=== PATIENT | female | born 1945 | race Caucasian/White ===

== ENCOUNTER → 2017-12-03 | Outpatient (CLI) | payer OTHER ==
[~2017-12-03] MED LIST: BENAZEPRIL 10 M10 MG PO; CALICUM 500+D1 EACH PO; D3 DOTS2000 UNIT PO; HYDROCHLOROTHIA25 M2 PO; NEURONTIN100 MG PO; TYLENOL EXTRA500 MG PO
[2017-12-04 05:12] LABS: IgA 561 mg/dL (87-352); IgG 828 mg/dL (700-1600); IgM 403 mg/dL (26-217)
[2017-12-05 10:08] LABS: ANA INTERPRETATION Negative (Negative)
== END ==
LOC: M.LAB 11:06
PROVIDERS: Psychiatry & Neurology Neuromuscular Medicine
DX: M79.604 Pain in right leg (principal); M62.81 Muscle weakness (generalized); Z98.890 Other specified postprocedural states; Z96.651 Presence of right artificial knee joint

== ENCOUNTER → 2017-12-24 | Outpatient (CLI) | payer OTHER ==
[2017-12-24 11:49] LABS: ABSOLUTE BASOPHILS 0.1 thou/uL (0.0-0.2); ABSOLUTE EOSINOPHILS 0.1 thou/uL (0.0-0.7); ABSOLUTE LYMPHOCYTES 1.6 thou/uL (0.8-5.3); ABSOLUTE MONOCYTES 0.6 thou/uL (0.0-1.2); ABSOLUTE NEUTROPHILS 3.9 thou/uL (1.6-8.1); BASOPHILS 1.1 %; EOSINOPHILS 1.7 %; LYMPHOCYTES 26.2 %; MCH 32.3 pg (26.0-34.0); MCHC 34.2 g/dL (28.0-37.0); MCV 94.6 fL (80.0-100.0); MONOCYTES 9.3 %; MPV 8.4 fl. (7.2-11.1); NUCLEATED RBCS 0 /100WBC; PLATELET COUNT* 363 thou/uL (150-400); POLYS 61.7 %; RBC 4.02 mil/uL (4.20-5.00); RDW-CV 13.6 % (10.5-14.5); WBC 6.3 thou/uL (4.0-11.0)
[2017-12-24 12:02] LABS: ALBUMIN 3.5 g/dL (3.4-5.0); CALCIUM 9.1 mg/dL (8.5-10.1); POTASSIUM 3.8 mmol/L (3.5-5.1); TOTAL BILIRUBIN 0.2 mg/dL (<0.1-1.0); TOTAL PROTEIN 7.9 g/dL (6.4-8.2)
[2017-12-24 21:10] LABS: IgA 517 mg/dL (87-352); IgG 873 mg/dL (700-1600); IgM 379 mg/dL (26-217)
[2017-12-25 15:09] LABS: KAPPA FREE LIGHT CHAINS 21.2 mg/L (3.3-19.4); LAMBDA FREE LIGHT CHAINS 87.8 mg/L (5.7-26.3)
[2017-12-27 19:11] LABS: M-SPIKE Note: g/dL (Not Observed)
--- NOTE | 2018-01-03 14:19 | HEMONC ---
[address] [address] HEMATOLOGY ONCOLOGY NOTE Name: NEETU ROSADO Room: [facility]#: [id number] Admission: 12/24/17 Attend Phys: Claudy Monterroso MD Discharge: Date of : 49 Report #: [id number] THIS REPORT FOR: //name// CC: Gene Zeke Monterroso DATE OF SERVICE: 12/24/2017 REFERRING PHYSICIAN: Dr. Winslow. REASON FOR CONSULTATION: Abnormal immunofixation. SUBJECTIVE: This is a 72-year-old female who was referred from Neurology service after she was evaluated because of back pain. 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 The patient has been complaining of back pain, knee pain for the last few years after she had surgery. She denies any frequent infections. She denies any other bone pain. The patient denies any headache, shortness of breath, nausea or vomiting. She denies any change in her urination. REVIEW OF SYSTEMS: All systems were reviewed and were negative except the above. PAST MEDICAL HISTORY: Hypertension, chronic back pain, vitamin D deficiency. MEDICATIONS: Aspirin 81 mg p.o. daily, Tylenol as needed, calcium supplement, vitamin D 1000 units daily, hydrochlorothiazide 25 mg p.o. daily, ____ 100 mg 3 times a day. PAST SURGICAL HISTORY: Hysterectomy, carpal tunnel surgery, spinal fusion in 2016, knee replacement in 2017, cataract surgery in 2013. SOCIAL HISTORY: She is an ex-smoker. She smoked for 22 years between the age of 20 and 42. She drinks alcohol occasionally. ALLERGIES: No known allergies. PHYSICAL EXAMINATION: VITAL SIGNS: Today, blood pressure is 135/74, SPO2 was 96% on room air, pulse 80, respirations 18, sat is 97% on room air. GENERAL: The patient was sitting in chair, was not in acute distress. LUNGS: Clear to auscultation bilaterally. HEART: Regular rate and rhythm. S1, S2 within normal limits. ABDOMEN: Soft, nontender, nondistended, bowel sounds positive. EXTREMITIES: No edema, no cyanosis, [place] [address] HEMATOLOGY ONCOLOGY NOTE Name: NEETU ROSADO Room: [facility]#: [id number] Admission: 12/24/17 Attend Phys: Claudy Monterroso MD Discharge: Date of : 49 Report #: [id number] ASSESSMENT AND PLAN: A 72 years old female who was evaluated because of monoclonal IgA and IgM. The patient had a chronic back pain. RECOMMENDATIONS: I would like to obtain a multiple myeloma workup including CBC, CMP, peripheral blood smear, complete serum electrophoresis with immunofixation and free light chain in addition to skeletal survey. If we consider bone marrow biopsy based on these results, the plan was discussed with the patient. Follow up in 2 weeks. <ELECTRONICALLY SIGNED> By: Claudy Monterroso MD 01/03/18 1419 0930 [id number] Monterroso MD /nt
== END ==
LOC: M.RTH 05:00
PROVIDERS: Internal Medicine
DX: Z12.31 Encounter for screening mammogram for malignant neoplasm of breast (principal); R77.9 Abnormality of plasma protein, unspecified; R82.90 Unspecified abnormal findings in urine; M54.5 Low back pain; I10 Essential (primary) hypertension

== ENCOUNTER → 2018-01-07 | Outpatient (CLI) | payer OTHER ==
--- NOTE | 2018-01-09 10:00 | HEMONC ---
[address] [address] HEMATOLOGY ONCOLOGY NOTE Name: NEETU ROSADO Room: [facility]#: [id number] Admission: 01/07/18 Attend Phys: Claudy Monterroso MD Discharge: Date of : 49 Report #: [id number] THIS REPORT FOR: //name// CC: Dr. Alanis Gene Zeke Monterroso DATE OF SERVICE: 01/07/2018 REFERRING PHYSICIAN: Dr. Winslow. DIAGNOSIS: Monoclonal gammopathy. SUBJECTIVE: A 72-year-old female was evaluated because of abnormal immunofixation. Repeated full lab showed IgM monoclonal gammopathy with lambda light chain. In addition to this, kappa was elevated at 21.0, lambda elevated at 87.8 and free light chain ratio 0.24. However, her calcium was normal at 9.1, with a normal hemoglobin of 13.0 and normal platelet count of 363,000. Skeletal survey came back within normal range. Her M-spike on serum electrophoresis was 0.3 grams. The patient continues to have back pain. REVIEW OF SYSTEMS: All systems are reviewed. It was negative, except the above. PHYSICAL EXAMINATION: VITAL SIGNS: Today, blood pressure is 127/74, pulse 80, respirations 18, temperature is 97.5 and saturation 96% on room air. GENERAL: The patient was sitting in a chair, was not in acute distress. She was awake, alert and oriented x 3. NEUROLOGIC: Cranial nerves were grossly intact. ASSESSMENT AND PLAN: A 72-year-old female was evaluated because of monoclonal gammopathy, IgM lambda. She has no evidence of end-organ damage. However, I would like to obtain a bone marrow biopsy to evaluate the status of her plasma cell dyscrasia, whether this is multiple myeloma versus smoldering myeloma versus MGUS. Followup will be based on the bone marrow biopsy. <ELECTRONICALLY SIGNED> By: Claudy Monterroso MD 01/09/18 1000 [id number] [id number] Monterroso MD /nt
== END ==
LOC: M.RTH 04:41
DX: D47.2 Monoclonal gammopathy (principal)

== ENCOUNTER → 2018-01-13 | Outpatient (CLI) | payer OTHER ==
[~2018-01-13] VITALS: Ht 162.6 cm; Wt 74.8 kg
[2018-01-13 12:39] VITALS: BP 110/56
[2018-01-13 12:41] LABS: HEMATOCRIT 37.5 % (37.0-47.0); HEMOGLOBIN 12.6 gm/dL (12.0-15.0); MCHC 33.5 g/dL (28.0-37.0); MCV 95.4 fL (80.0-100.0); MPV 8.9 fl. (7.2-11.1); PLATELET COUNT* 253 thou/uL (150-400); RBC 3.94 mil/uL (4.20-5.00); RDW-CV 12.4 % (10.5-14.5); WBC 5.5 thou/uL (4.0-11.0)
[2018-01-13 12:44] LABS: CALCIUM 9.5 mg/dL (8.5-10.1); CREATININE 0.9 mg/dL (0.6-1.3); POTASSIUM 3.3 mmol/L (3.5-5.1)
[2018-01-13 12:47] LABS: APTT 23.8 Seconds (25.0-31.3); PROTIME 10.6 Seconds (9.20-11.50)
[2018-01-13 13:11] LABS: NUCLEATED RBCS 0 /100WBC
[2018-01-13 13:41] LABS: ABSOLUTE EOSINOPHILS 0.1 thou/uL (0.0-0.7); ABSOLUTE LYMPHOCYTES 1.9 thou/uL (0.8-5.3); ABSOLUTE MONOCYTES 0.5 thou/uL (0.0-1.2)
[2018-01-13 13:42] LABS: PLATELET ESTIMATE ADEQUATE
[2018-01-13 14:15] VITALS: BP 145/56
[2018-01-13 14:30] VITALS: BP 113/55
[2018-01-13 15:19] VITALS: BP 113/65
--- NOTE | 2018-01-22 09:08 | PATH ---
[address] [address] PATHOLOGY RPT PROCEDURE Name: NEETU ROSADO Room: [facility]#: [id number] Admission: 01/13/18 Date of : 49 Discharge: Report #: [id number] Path Case #: [id number] [facility] Accession Number: [id number] . 01 Material submitted: . PART A: BONE MAROW BIOPSY PART B: BONE MARROW CLOT PART C: BONE MARROW ASPIRATE SLIDES PART D: PERIPHERAL SMEAR PART E: BONE MARROW FLOW . 01 Clinical history: . 72 year old woman with rule out myeloma (monoclonal gammopathy). . . 02 Diagnosis: Bone marrow aspirate, biopsy, cell clot and peripheral blood: - Peripheral blood with very mild erythropenia. - Normocellular to mildly hypercellular bone marrow with trilineage hematopoiesis, mild erythroid hyperplasia, mild (no significant) dyspoiesis and no evidence of lymphoma or acute leukemia. - Minute monoclonal plasma cell population detected by flow cytometry only. - See comment. LBMarques/01/15/2018 . 02 Comment: Overall, the bone marrow is normocellular to very mildly hypercellular for the patient's age with trilineage hematopoiesis, mild erythroid hyperplasia, mild (no significant) dyspoiesis and no evidence of lymphoma or acute leukemia. Flow cytometry identifies a minute monoclonal plasma cell population identified within a background of polyclonal plasma cells. Immunohistochemical staining shows polyclonal plasma cells. Therefore, the exact percentage of possible clonal plasma cells is difficult to determine and estimated at much less than 5%. Correlation with clinical history, additional laboratory data and radiographic findings is required. The dyspoiesis is mild and does not meet the morphologic criteria for myelodysplasia. Correlation with cytogenetics is also recommended. (CLW/gerardo; 01/15/2018) . 02 Electronically signed: . Rosanne Mckeon MD, Pathologist NPI- [id number] . 01 Gross description: . A. Received in formalin labeled "Neetu Rosado Core," is a single needle core of mccray bone measuring 0.6 cm in length and 0.4 cm in diameter. The specimen is submitted entirely in cassette A1, [place] [address] PATHOLOGY RPT PROCEDURE Name: NEETU ROSADO Room: [facility]#: [id number] Admission: 01/13/18 Date of : 49 Discharge: Report #: [id number] Path Case #: [id number] decalcification. . B. Received in formalin labeled "Neetu Rosado Clot," is an aggregate of dark mccray blood clot measuring 3.6 x 1.3 x 1.5 cm. The specimen is filtered and entirely submitted in cassette B1 through B5. (TSD; 01/13/2018) TOB/TOB . 02 Microscopic: . CBC Data (01/13/18): WBC 5,600 per uL, RBC 3.96, hemoglobin 12.7 g/dL, hematocrit 37.5%, MCV 94.6 fL, MCH 32.1 pg, MCHC 33.9 g/dL, RDW 12.6%, and platelet count 258,000 per uL. Automated white blood cell differential: segs 52.9%, lymphs 34.7%, monos 8.9%, eos 2.1%, and basos 1.4%. . Peripheral Blood Smear: Cytomorphological examination of the Acevedo's stained peripheral blood smear confirms the provided data. Red blood cells are without significant anisopoikilocytosis. White blood cells are predominantly segmented neutrophils and without significant dyspoiesis or significant left shift. Lymphocytes are predominantly small, round, and mature appearing with condensed chromatin and scant cytoplasm with admixed large granular lymphocytes. A rare plasmacytoid lymphocyte is noted on scanning. Monocytes are mature. Platelets are adequate in number and mainly normal in morphology with rare larger platelets noted. . Aspirate Smears: Cytomorphological examination of the Acevedo's stained aspirate smear shows spicules present. The overall cellularity is approximately 40%. The myeloid to erythroid ratio is 1.5:1. Full myeloid maturation is identified and is without significant dyspoiesis. Erythroid maturation is mildly dyserythropoietic with irregular nuclear contours, mitotic figures and nuclear cytoplasmic dyssynchrony. In a 500 cell differential, there are 1% blasts (no Edwige rods are seen), 45% more differentiated myeloids, 32% erythroid precursors, 19% lymphocytes and 3% plasma cells. Megakaryocytes are proportional in number and both normal and abnormal in morphology with variable sizes and nuclear abnormalities. No lymphoid aggregates or markedly atypical lymphoid cells are seen. Plasma cells are without atypia. . Core Biopsy and Cell Clot: The decalcified bone marrow core biopsy is suboptimal. It is predominantly skeletal muscle with a small fragment of bone with minimal bone marrow space. The bone marrow shows trilineage hematopoiesis. The cellularity is approximately 30-40%. The myeloid to erythroid ratio is 1:1. Myeloid and erythroid maturation are without significant dyspoiesis. Megakaryocytes appear unremarkable. No lymphoid aggregates or markedly atypical lymphoid cells are seen. Bony trabeculae and blood vessels are unremarkable. The cell clot has spicules present that are similar in cellularity and [place] [address] PATHOLOGY RPT PROCEDURE Name: NEETU ROSADO Room: [facility]#: [id number] Admission: 01/13/18 Date of : 49 Discharge: Report #: [id number] Path Case #: [id number] . Properly controlled special stains are performed. . Iron (Block A1) - 1/4+ iron positivity Reticulin - Focal mild reticulin fibrosis (minimal bone marrow space for evaluation) . Blocks B1, B2, B3, B4 and B5 Iron - 1/4+ iron positivity with spicules present . To further quantify and evaluate the plasma cells and to identify cells in a tissue architectural context, properly controlled immunohistochemical stains are performed. . Block A1 CD138 - Highlights less than 5% scattered plasma cells [place] and lambda in situ hybridization - No clonal population identified. . Block B4 CD138 - Highlights approximately 4-5% scattered plasma cells [place] and lambda in situ hybridization - No clonal population identified, plasma cells appear polytypic. . Flow Cytometry: Flow cytometric immunophenotypic analysis was performed at [facility]. The diagnosis is "minute monoclonal plasma cell population detected." There are 14.0% lymphocytes. Of the lymphocytes, there are 71% T-cells with a CD4/CD8 ratio of 2.2 with no aberrant T-cell antigen expression and 14% polyclonal B-cells (kappa lambda ratio of 0.4). There are 0.9% CD34 positive cells (blasts) and 1% precursor B cells. Plasma cells are 0.2% of total. A subset of the plasma cells (20% of plasma cells, 0.04% of total) shows aberrant loss of CD19 with cyto-lambda light chain restriction. The remaining plasma cells are CD19 positive and polyclonal. Flow cytometry shows monoclonal plasma cells (less than 1% of total cells), suggestive of either monoclonal gammopathy of undetermined significance (MGUS) or minimal residual/recurrent disease of a treated plasma cell myeloma. Please see separate flow cytometry report from [facility] ([id number]). . Cytogenetics: Cytogenetic chromosomal analysis is pending at [facility] ([id number]). . 02 Pathologist provided ICD-10: R71.8, D75.89 . 02 CPT . 559892, 824961, 956396, 243090, 599463, 544139, 936815, 507013, 634142, 121277, O68521, R28271, A67127 [place] [address] PATHOLOGY RPT PROCEDURE Name: NEETU ROSADO Room: [facility]#: [id number] Admission: 01/13/18 Date of : 49 Discharge: Report #: [id number] Path Case #: [id number] Specimen Comment: A courtesy copy of this report has been sent to Specimen Comment: [phone], . Specimen Comment: Report sent to / DR ZALDIVAR Performed at: 01 [facility] [address] [id number] MD [address] MD Phone: [phone] Performed at: 02 [facility] [address] [id number] MD Gage Dolan MD Phone: [phone]
== END | disposition home or self-care (01) ==
LOC: M.INT 11:20
PROVIDERS: Radiology Diagnostic Radiology
DX: C90.00 Multiple myeloma not having achieved remission (principal); Z79.899 Other long term (current) drug therapy; Z98.890 Other specified postprocedural states; Z96.659 Presence of unspecified artificial knee joint; Z98.49 Cataract extraction status, unspecified eye; Z90.710 Acquired absence of both cervix and uterus; R79.89 Other specified abnormal findings of blood chemistry

== ENCOUNTER → 2018-01-21 | Outpatient (CLI) | payer OTHER ==
--- NOTE | 2018-01-23 12:42 | HEMONC ---
[address] [address] HEMATOLOGY ONCOLOGY NOTE Name: NEETU ROSADO Room: [facility].#: [id number] Admission: 01/21/18 Attend Phys: Claudy Monterroso MD Discharge: Date of : 49 Report #: [id number] THIS REPORT FOR: //name// CC: Link OROZCO DATE OF SERVICE: 01/21/2018 DIAGNOSIS: Monoclonal gammopathy of undetermined significance. SUBJECTIVE: The patient presented today to discuss her bone marrow biopsy results, which came back. There is no evidence of lymphoma or leukemia. Her plasma cells have a very mild increase, which is less than 5%. There was no evidence of increased plasma cell dyscrasia. I discussed with the patient that based on this, she does not have any evidence of end-organ damage. We would like to continue to monitor her labs. REVIEW OF SYSTEMS: All systems reviewed. It was negative except the above. PAST MEDICAL, SOCIAL, AND FAMILY HISTORY: Unchanged from previous visits. PHYSICAL EXAMINATION: VITAL SIGNS: Blood pressure is 123/73, pulse is 86, respirations 18, sat is 97.7, pulse is 86. GENERAL: The patient was sitting in chair, was not in acute distress. LUNGS: Clear to auscultations bilaterally. HEART: Regular rate and rhythm. S1, S2 within normal limits. ABDOMEN: Soft, nontender, nondistended, bowel sounds positive. LABORATORY DATA: On 01/13/2018, WBC was 5.5, hemoglobin 12.6, platelets 253. Creatinine was 0.9. Immunofixation showed 0.3 IgM and 0.3, lambda light chain. Free light chain ratio was abnormal at 0.24, lambda increased 87.8, kappa also increased 21.2. ASSESSMENT AND PLAN: A 72-year-old female who was diagnosed with monoclonal gammopathy of undetermined significance. Her bone marrow biopsy showed less than 5% plasma cells with no evidence of leukemia or lymphoma, no evidence of end organ damage. Her skeletal survey came back negative. The patient is asymptomatic. At this point, I would like to monitor the patient with labs including CBC, CMP and serum electrophoresis, immunofixation and free light chain at 4, 6 and [address] [place] [address] HEMATOLOGY ONCOLOGY NOTE Name: NEETU ROSADO Room: [facility]#: [id number] Admission: 01/21/18 Attend Phys: Claudy Monterroso MD Discharge: Date of : 49 Report #: [id number] Plan was discussed with the patient. She agrees and all questions have been answered. <ELECTRONICALLY SIGNED> By: Claudy Monterroso MD 01/23/18 1242 1003 1250Mokaiden Monterroso MD /nt
== END ==
LOC: M.RTH 05:14
DX: D47.2 Monoclonal gammopathy (principal)

== ENCOUNTER → 2018-02-18 | Outpatient (CLI) | payer OTHER | LOC: M.MRI 14:13 | DX: M51.25 Other intervertebral disc displacement, thoracolumbar region (principal); M48.061 Spinal stenosis, lumbar region without neurogenic claudication ==

== ENCOUNTER → 2018-03-05 | Outpatient (CLI) | payer OTHER | LOC: M.LAB 10:30 → M.MRI 11:30 | DX: M48.061 Spinal stenosis, lumbar region without neurogenic claudication (principal); M51.25 Other intervertebral disc displacement, thoracolumbar region; M43.16 Spondylolisthesis, lumbar region; M43.26 Fusion of spine, lumbar region; M96.1 Postlaminectomy syndrome, not elsewhere classified; M79.604 Pain in right leg; M79.605 Pain in left leg ==

== ENCOUNTER → 2018-05-19 | Outpatient (CLI) | payer OTHER ==
[2018-05-19 10:36] LABS: ABSOLUTE EOSINOPHILS 0.1 thou/uL (0.0-0.7); ABSOLUTE LYMPHOCYTES 1.5 thou/uL (0.8-5.3); ABSOLUTE MONOCYTES 0.3 thou/uL (0.0-1.2); ABSOLUTE NEUTROPHILS 2.3 thou/uL (1.6-8.1); BASOPHILS 0.9 %; EOSINOPHILS 2.1 %; HEMATOCRIT 41.6 % (37.0-47.0); HEMOGLOBIN 14.1 gm/dL (12.0-15.0); LYMPHOCYTES 34.5 %; MCH 31.4 pg (26.0-34.0); MCHC 33.9 g/dL (28.0-37.0); MCV 92.5 fL (80.0-100.0); MONOCYTES 8.1 %; MPV 9.3 fl. (7.2-11.1); NUCLEATED RBCS 0 /100WBC; PLATELET COUNT* 263 thou/uL (150-400); POLYS 54.4 %; RDW-CV 13.1 % (10.5-14.5); WBC 4.2 thou/uL (4.0-11.0)
[2018-05-19 10:52] LABS: ALBUMIN 3.6 g/dL (3.4-5.0); CALCIUM 9.9 mg/dL (8.5-10.1); CREATININE 1.1 mg/dL (0.6-1.3); POTASSIUM 3.5 mmol/L (3.5-5.1); TOTAL BILIRUBIN 0.3 mg/dL (<0.1-1.0)
[2018-05-19 21:07] LABS: IgA 571 mg/dL (64-422); IgG 932 mg/dL (700-1600); IgM 390 mg/dL (26-217)
[2018-05-20 15:08] LABS: LAMBDA FREE LIGHT CHAINS 88.7 mg/L (5.7-26.3)
[2018-05-21 17:10] LABS: GLOBULIN TOTAL 3.6 g/dL (2.2-3.9); M-SPIKE Note: g/dL (Not Observed)
== END ==
LOC: M.LAB 10:10
PROVIDERS: Internal Medicine
DX: R77.9 Abnormality of plasma protein, unspecified (principal)

== ENCOUNTER → 2018-06-03 | Outpatient (CLI) | payer OTHER ==
--- NOTE | 2018-06-04 15:44 | HEMONC ---
[address] [address] HEMATOLOGY ONCOLOGY NOTE Name: NEETU ROSADO Room: [facility]#: [id number] Admission: 06/03/18 Attend Phys: Claudy Monterroso MD Discharge: Date of : 49 Report #: [id number] THIS REPORT FOR: //name// CC: Link Monterroso Primary Care Physician DATE OF SERVICE: 06/03/2018 DIAGNOSIS: MGUS. SUBJECTIVE: The patient presented today as a 4 months followup. She has been doing fairly well since her last visit. The patient had a nerve block on Saturday. She continues to have mild pain. I reviewed her blood work, which I requested on 05/19/2018, which showed normal hemoglobin, normal platelets. Her creatinine has been stable at 1.1, calcium within normal range. Her serum electrophoresis continues to show stable 2 small M-spikes of 0.3. Lambda also continues to be on the same range. REVIEW OF SYSTEMS: All systems reviewed. It was negative except the above. Her past medical, social, and family history unchanged except the above. MEDICATIONS: List has been reviewed. PHYSICAL EXAMINATION: VITAL SIGNS: Today, blood pressure is 100/71, pulse is 102, respirations 20, temperature is 97.0, pulse is 97% on room air. GENERAL: The patient was sitting in chair, was not in acute distress. LUNGS: Clear to auscultations bilaterally. No wheezing. No rales. ABDOMEN: Soft, nontender, nondistended. Bowel sounds positive. EXTREMITIES: No edema, no cyanosis, no clubbing. LABORATORY DATA: WBC 4.2, hemoglobin 14.1, platelets 263, creatinine 1.1, calcium is 9.9, total protein 8.0. Serum electrophoresis showed 2 M-spike measuring 0.3 IgA monoclonal with lambda immunofixation. The other one was IgM with a lambda light chain. Her lambda free light chain was 88.7, previously it was 87.8. Free light chain ratio, normal at 0.27. ASSESSMENT AND PLAN: A 73-year-old female who has been evaluated because of MGUS. She had a bone marrow biopsy, which showed less than 5% plasma cells, no evidence of end organ damage. RECOMMENDATIONS: At this point [place] [address] HEMATOLOGY ONCOLOGY NOTE Name: NEETU ROSADO Room: [facility].#: [id number] Admission: 06/03/18 Attend Phys: Claudy Monterroso MD Discharge: Date of : 49 Report #: [id number] myeloma are pretty low. I would like to continue to monitor the patient with serum electrophoresis and CBC. I will follow up in 12 months. <ELECTRONICALLY SIGNED> By: Claudy Monterroso MD 06/04/18 1544 0955 2246MD bobby Caicedo
== END ==
LOC: M.RTH 05:17
DX: D47.2 Monoclonal gammopathy (principal)

== ENCOUNTER → 2019-05-25 | Outpatient (CLI) | payer MEDICARE ==
[2019-05-25 10:54] LABS: ABSOLUTE BASOPHILS 0.1 thou/uL (0.0-0.2); ABSOLUTE EOSINOPHILS 0.2 thou/uL (0.0-0.7); ABSOLUTE LYMPHOCYTES 2.2 thou/uL (0.8-5.3); ABSOLUTE MONOCYTES 0.6 thou/uL (0.0-1.2); ABSOLUTE NEUTROPHILS 3.6 thou/uL (1.6-8.1); EOSINOPHILS 2.8 %; HEMATOCRIT 37.5 % (37.0-47.0); HEMOGLOBIN 12.8 gm/dL (12.0-15.0); LYMPHOCYTES 32.7 %; MCH 31.5 pg (26.0-34.0); MCHC 34.1 g/dL (28.0-37.0); MCV 92.3 fL (80.0-100.0); MONOCYTES 8.7 %; NUCLEATED RBCS 0 /100WBC; PLATELET COUNT* 261 thou/uL (150-400); POLYS 54.8 %; RBC 4.07 mil/uL (4.20-5.00); RDW-CV 12.6 % (10.5-14.5); WBC 6.6 thou/uL (4.0-11.0)
[2019-05-25 11:13] LABS: ALBUMIN 3.5 g/dL (3.4-5.0); CALCIUM 8.8 mg/dL (8.5-10.1); POTASSIUM 4.1 mmol/L (3.5-5.1); TOTAL BILIRUBIN 0.2 mg/dL (<0.1-1.0); TOTAL PROTEIN 7.4 g/dL (6.4-8.2)
== END ==
LOC: M.LAB 10:34
PROVIDERS: Internal Medicine
DX: R77.9 Abnormality of plasma protein, unspecified (principal)

== ENCOUNTER → 2019-06-02 | Outpatient (CLI) | payer MEDICARE ==
--- NOTE | 2019-06-07 14:10 | HEMONC ---
[address] [address] HEMATOLOGY ONCOLOGY NOTE Name: NEETU ROSADO Room: [facility]#: [id number] Admission: 06/02/19 Attend Phys: Claudy Monterroso MD Discharge: Date of : 49 Report #: [id number] THIS REPORT FOR: //name// CC: ANGIE physician/PCP Claudy Monterroso DATE OF SERVICE: 06/02/2019 DIAGNOSIS: Monoclonal gammopathy of undetermined significance. SUBJECTIVE: The patient presented today for 1-year followup. Since her last visit, she has been doing very well. She did have a back surgery in 10/2018; however, she denies any fatigue, back pain, or frequent infection. REVIEW OF SYSTEMS: All systems reviewed. It was negative except the above. PAST MEDICAL, SOCIAL, AND FAMILY HISTORY: Unchanged except the above. PHYSICAL EXAMINATION: GENERAL: The patient was sitting in chair, was not in acute distress. LUNGS: Clear to auscultations bilaterally. HEART: Regular rate and rhythm. S1, S2 within normal limits. ABDOMEN: Soft and nontender. EXTREMITIES: +1 edema bilaterally. LABORATORY DATA: On 05/25/2019, WBC 6.6, hemoglobin 12.8, and platelets 261. Sodium is 142, potassium is 4.1, creatinine 1.0, calcium is 8.8, bilirubin 0.6, AST 18, ALT 23, alkaline phosphatase is 86. Serum protein electrophoresis showed two 0.3 M-spike, one is IgA lambda and second is IgM lambda. Previous skeletal survey back in 2018 showed no evidence of lytic lesions. ASSESSMENT AND PLAN: A 74-year-old female who has been diagnosed with monoclonal gammopathy of undetermined significance. At this point, the patient does not have any evidence of end-organ damage. Calcium, GFR, and hemoglobin within normal range. No evidence of lytic lesions. She does not have any active symptoms. Recommend to monitor her labs including serum electrophoresis and immunofixation with a free light chain on an annual basis. The patient elected to have this monitored through her primary care. Followup is as needed. <ELECTRONICALLY SIGNED> By: Claudy Monterroso MD 06/07/19 1410 1006 1058Claudy Monterroso MD /nt
== END ==
LOC: M.RTH 06-01 09:00
DX: D47.2 Monoclonal gammopathy (principal)